=== PATIENT | male | born 1995 | race Caucasian/White ===

== ENCOUNTER 2017-12-23 11:38 | Inpatient (IN) | payer MEDICAID, OTHER ==
[~2017-12-23] VITALS: Ht 175.3 cm; Wt 71.2 kg
[2017-12-23] MEDS ORDERED: LORazepam 2 MG/ML VIAL ONE (11:53)
[2017-12-23] MEDS ORDERED: DiphenhydrAMINE HCL 50 MG/ML VIAL ONE (11:53)
[2017-12-23] MEDS ORDERED: HALOPERIDOL LACTATE 5 MG/ML VIAL ONE (11:53)
[2017-12-23] MEDS ORDERED: HALOPERIDOL LACTATE 5 MG/ML VIAL IM ONE (12:00)
[2017-12-23] MEDS ORDERED: LORazepam 2 MG/ML VIAL IM ONE (12:00)
[2017-12-23] MEDS ORDERED: DiphenhydrAMINE HCL 50 MG/ML VIAL IM ONE (12:00)
[2017-12-23 12:53] LABS: BASOPHILS % (AUTO) 0.6 % (0.0-2.0); EOSINOPHILS % (AUTO) 0.4 % (1.0-6.0); HEMATOCRIT 37.5 % (41-53); HEMOGLOBIN 12.9 g/dL (13.5-17.5); LYMPHOCYTES # (AUTO) 1.5 K/uL (1.0-4.8); LYMPHOCYTES % (AUTO) 13.2 % (22.0-44.0); MEAN CORPUSCULAR HEMOGLOBIN 27.8 pg (26.0-34.0); MEAN CORPUSCULAR HGB CONC 34.4 G/dL (31.0-37.0); MEAN CORPUSCULAR VOLUME 81 fL (80-100); MONOCYTES % (AUTO) 8.6 % (2.0-9.0); NEUTROPHILS # (AUTO) 8.9 K/uL (1.8-7.7); NEUTROPHILS % (AUTO) 77.2 % (40.0-70.0); PLATELET COUNT (AUTO) 223 K/uL (150-450); RED BLOOD CELL COUNT(AUTO) 4.64 MIL/uL (4.50-5.90); RED CELL DISTRIBUTION WIDTH 12.8 % (11.5-14.5)
[2017-12-23] MEDS ORDERED: ZOLPIDEM TARTRATE 10 MG TABLET PO PRN (13:00)
[2017-12-23] MEDS ORDERED: HALOPERIDOL 5 MG TABLET PO PRN (13:00)
[2017-12-23] MEDS ORDERED: LORazepam 2 MG TABLET PO PRN (13:00)
[2017-12-23 13:04] LABS: ANION GAP 13 mmol/L (8-16); CALCIUM, TOTAL 8.9 mg/dL (8.8-10.5); CARBON DIOXIDE 25 mmol/L (22-29); CHLORIDE 103 mmol/L (98-107); CREATININE 0.88 mg/dL (0.60-1.30); GLOMERULAR FILTR. RATE CALC > 60 mL/min (>60); GLUCOSE,RANDOM 87 mg/dL (70-110); POTASSIUM 3.2 mmol/L (3.5-5.1); SODIUM SERUM 141 mmol/L (136-145); UREA NITROGEN, BLOOD 19 mg/dL (7-18)
[2017-12-23 13:09] LABS: ALANINE AMINOTRANSFERASE 56 U/L (12-78); ALBUMIN 4.2 g/dL (3.4-5.0); ALKALINE PHOSPHATASE 53 U/L (46-116); ASPARTATE AMINOTRANSFERASE 167 U/L (15-37); BILIRUBIN,TOTAL 1.7 mg/dL (0.1-1.0)
[2017-12-23 22:08] LABS: AMPHET/METH SCREEN,URINE NEGATIVE (NEGATIVE); BARBITURATE SCREEN, URINE NEGATIVE (NEGATIVE); BENZODIAZEPINES SCREEN,URINE NEGATIVE (NEGATIVE); CANNABINOID SCREEN,URINE NEGATIVE (NEGATIVE); COCAINE SCREEN,URINE NEGATIVE (NEGATIVE); METHADONE SCREEN, URINE NEGATIVE (NEGATIVE); OPIATE SCREEN,URINE NEGATIVE (NEGATIVE)
[2017-12-23 22:10] LABS: PHENCYCLIDINE SCREEN,URINE NEGATIVE (NEGATIVE)
[2017-12-24 08:15] LABS: FREE T4 (FREE THYROXINE) 1.28 ng/dL (0.76-1.46); THYROID STIMULATING HORMONE 2.07 uIU/mL (0.36-3.74)
[2017-12-24 09:05] LABS: APPEARANCE,URINE TURBID (CLEAR); BILIRUBIN,URINE NEGATIVE (NEGATIVE); GLUCOSE, URINE (UA) NEGATIVE (NEGATIVE); KETONES,URINE TRACE mg/dL (NEGATIVE); LEUKOCYTE ESTERASE ,URINE NEGATIVE (NEGATIVE); NITRATE,URINE NEGATIVE (NEGATIVE); OCCULT BLOOD,URINE NEGATIVE (NEGATIVE); PH,URINE 6.5 (5.0-8.0); PROTEIN,URINE TRACE (NEGATIVE); UROBILINOGEN,URINE 0.2 mg/dL (<=1.0)
[2017-12-24 09:18] LABS: AMORPHOUS SEDIMENT,UR Moderate /LPF (None Seen); BACTERIA,URINE Few /HPF (None Seen); RBC,URINE None Seen /HPF (0-2); SQUAMOUS EPITHELIAL CELL,UR Rare /LPF (None Seen); WBC,URINE None Seen /HPF (0-5)
[2017-12-24 15:53] VITALS: BP 140/70
[2017-12-24 16:04] VITALS: BP 140/70
[2017-12-25 09:35] VITALS: BP 137/78
[2017-12-25] MEDS: OLANZapine 5 MG RAPDIS TABLET PO SCH (16:51)
[2017-12-25 17:07] VITALS: BP 147/91
[2017-12-25] MEDS ORDERED: POTASSIUM CHLORIDE 20 MEQ ER TABLET PO ONE (17:45)
[2017-12-25] MEDS: OLANZapine 10 MG RAPDIS TABLET PO SCH (20:24)
[2017-12-26] MEDS ORDERED: INFLUENZA VIRUS VACCINE QVS 2017-18 (3YR+)/PF 60 MCG/0.5 ML SYRINGE IM ONE (04:30)
[2017-12-26 06:50] LABS: BASOPHILS % (AUTO) 1.1 % (0.0-2.0); EOSINOPHILS % (AUTO) 2.1 % (1.0-6.0); HEMATOCRIT 37.8 % (41-53); LYMPHOCYTES % (AUTO) 37.8 % (22.0-44.0); MEAN CORPUSCULAR HEMOGLOBIN 27.9 pg (26.0-34.0); MEAN CORPUSCULAR HGB CONC 34.3 G/dL (31.0-37.0); MEAN CORPUSCULAR VOLUME 81 fL (80-100); MONOCYTES # (AUTO) 0.4 K/uL (0.1-1.0); MONOCYTES % (AUTO) 8.1 % (2.0-9.0); NEUTROPHILS # (AUTO) 2.7 K/uL (1.8-7.7); NEUTROPHILS % (AUTO) 50.9 % (40.0-70.0); PLATELET COUNT (AUTO) 234 K/uL (150-450); RED BLOOD CELL COUNT(AUTO) 4.65 MIL/uL (4.50-5.90); RED CELL DISTRIBUTION WIDTH 12.9 % (11.5-14.5)
[2017-12-26 07:36] LABS: ALANINE AMINOTRANSFERASE 49 U/L (12-78); ALBUMIN 4.1 g/dL (3.4-5.0); ALKALINE PHOSPHATASE 56 U/L (46-116); ANION GAP 9 mmol/L (8-16); ASPARTATE AMINOTRANSFERASE 63 U/L (15-37); BILIRUBIN,TOTAL 1.3 mg/dL (0.1-1.0); CALCIUM, TOTAL 9.3 mg/dL (8.8-10.5); CARBON DIOXIDE 28 mmol/L (22-29); CHLORIDE 102 mmol/L (98-107); CHOL/HDL RATIO 2.1 (4.2-7.3); CHOLESTEROL 90 mg/dL (131-200); CREATININE 0.74 mg/dL (0.60-1.30); FREE T4 (FREE THYROXINE) 1.36 ng/dL (0.76-1.46); GLOMERULAR FILTR. RATE CALC > 60 mL/min (>60); GLUCOSE,RANDOM 96 mg/dL (70-110); HDL CHOLESTEROL 43 mg/dL (40-60); LDL CHOL (CALC.) 41 mg/dL (0-130); POTASSIUM 3.5 mmol/L (3.5-5.1); SODIUM SERUM 139 mmol/L (136-145); THYROID STIMULATING HORMONE 2.61 uIU/mL (0.36-3.74); TOTAL PROTEIN, SERUM 7.3 g/dL (6.4-8.2); TRIGLYCERIDES 30 mg/dL (15-150); UREA NITROGEN, BLOOD 5 mg/dL (7-18)
[2017-12-26 08:24] VITALS: BP 129/85
[2017-12-26] MEDS: OLANZapine 5 MG RAPDIS TABLET PO SCH ×2 (09:00→16:38)
[2017-12-26 16:30] VITALS: BP 134/81
[2017-12-26] MEDS ORDERED: HALOPERIDOL LACTATE 5 MG/ML VIAL IM ONE (19:30)
[2017-12-26] MEDS ORDERED: LORazepam 2 MG/ML VIAL IM ONE (19:30)
[2017-12-26] MEDS ORDERED: DiphenhydrAMINE HCL 50 MG/ML VIAL IM ONE (19:30)
[2017-12-26] MEDS: OLANZapine 10 MG RAPDIS TABLET PO SCH (20:18)
[2017-12-27] MEDS: OLANZapine 5 MG RAPDIS TABLET PO SCH ×2 (09:00→15:46)
[2017-12-27 09:33] VITALS: BP 125/83
[2017-12-27 16:00] VITALS: BP 144/94
[2017-12-27] MEDS: OLANZapine 10 MG RAPDIS TABLET PO SCH (20:16)
[2017-12-28 08:12] VITALS: BP 137/92
[2017-12-28] MEDS: OLANZapine 5 MG RAPDIS TABLET PO SCH (08:18)
[2017-12-28] MEDS ORDERED: OLAN10TA6 PO (14:38)
[2017-12-28] MEDS ORDERED: OLAN5TAB40 PO (14:38)
[2017-12-28 17:28] VITALS: BP 150/85
== END 2017-12-28 18:00 | disposition left against medical advice (07) | DRG 750 ==
LOC: EMS 11:41 → 3EC 12-24 15:00
PROVIDERS: ADMIT Psychiatry & Neurology Child & Adolescent Psychiatry; ATTEND Psychiatry & Neurology Child & Adolescent Psychiatry
DX: F20.0 Paranoid schizophrenia (principal); E87.6 Hypokalemia; Z53.21 Procedure and treatment not carried out due to patient leaving prior to being seen by health care provider; D64.9 Anemia, unspecified; D72.829 Elevated white blood cell count, unspecified; F41.9 Anxiety disorder, unspecified; R79.89 Other specified abnormal findings of blood chemistry; Z28.21 Immunization not carried out because of patient refusal
CPT/HCPCS: 80074; 82306; 84439; 84443; 96372; 99291; G0480; J1200; J1630; J2060

== ENCOUNTER 2019-03-05 12:20 | Inpatient (IN) | payer MEDICAID, OTHER ==
[~2019-03-05] VITALS: Ht 177.8 cm; Wt 77.6 kg
[~2019-03-05 12:20] MED LIST: OLAN10TA6 PO; OLAN5TAB40 PO
[2019-03-05 16:59] LABS: AMPHET/METH SCREEN,URINE NEGATIVE (NEGATIVE); BARBITURATE SCREEN, URINE NEGATIVE (NEGATIVE); BENZODIAZEPINES SCREEN,URINE NEGATIVE (NEGATIVE); CANNABINOID SCREEN,URINE NEGATIVE (NEGATIVE); COCAINE SCREEN,URINE NEGATIVE (NEGATIVE); METHADONE SCREEN, URINE NEGATIVE (NEGATIVE); OPIATE SCREEN,URINE NEGATIVE (NEGATIVE)
[2019-03-05 17:00] LABS: PHENCYCLIDINE SCREEN,URINE NEGATIVE (NEGATIVE)
[2019-03-05] MEDS ORDERED: LORazepam 2 MG/ML VIAL IM ONE (20:30)
[2019-03-05] MEDS ORDERED: DiphenhydrAMINE HCL 50 MG/ML VIAL IM ONE (20:30)
[2019-03-05] MEDS ORDERED: HALOPERIDOL LACTATE 5 MG/ML VIAL IM ONE (20:30)
[2019-03-05] MEDS ORDERED: ZOLPIDEM TARTRATE 10 MG TABLET PO PRN (20:45)
[2019-03-05] MEDS ORDERED: HALOPERIDOL 5 MG TABLET PO PRN (20:45)
[2019-03-05] MEDS: LORazepam 2 MG TABLET PO PRN (20:50)
[2019-03-06 10:22] VITALS: BP 142/83
[2019-03-06] MEDS ORDERED: NICOTINE 14 MG/24 HOUR PATCH TD PRN (10:45)
[2019-03-06] MEDS ORDERED: MAGNESIUM HYDROXIDE SUSPENSION 30 ML UDCUP PO PRN (10:45)
[2019-03-06] MEDS ORDERED: LOPERAMIDE HCL 2 MG CAPSULE PO PRN (10:45)
[2019-03-06] MEDS ORDERED: GuaiFENesin/D-METHORPHAN [SUGAR-FREE] 200-20MG/10 ML SYRUP UDCUP PO PRN (10:45)
[2019-03-06] MEDS ORDERED: MAG HYDROX/AL HYDROX/SIMETH ES 30 ML SUSPENSION UDCUP PO PRN (10:45)
[2019-03-06] MEDS ORDERED: PETROLATUM,WHITE 28 GM JELLY TP PRN (10:45)
[2019-03-06] MEDS ORDERED: ONDANSETRON HCL 4 MG TABLET PO PRN (10:45)
[2019-03-06] MEDS ORDERED: ALBUTEROL SULFATE HFA 90 MCG/PUFF 8 GM INHALER IH PRN (10:45)
[2019-03-06 16:00] VITALS: BP 102/75
[2019-03-06] MEDS: OLANZapine 5 MG TABLET PO SCH (17:00)
[2019-03-07 03:51] VITALS: BP 138/83
[2019-03-07 08:21] LABS: BASOPHILS % (AUTO) 0.5 % (0.0-2.0); EOSINOPHILS % (AUTO) 4.4 % (1.0-6.0); HEMATOCRIT 44.6 % (41-53); HEMOGLOBIN 14.8 g/dL (13.5-17.5); LYMPHOCYTES # (AUTO) 1.8 K/uL (1.0-4.8); MEAN CORPUSCULAR HEMOGLOBIN 27.9 pg (26.0-34.0); MEAN CORPUSCULAR HGB CONC 33.1 G/dL (31.0-37.0); MEAN CORPUSCULAR VOLUME 84 fL (80-100); MONOCYTES # (AUTO) 0.4 K/uL (0.1-1.0); MONOCYTES % (AUTO) 7.2 % (2.0-9.0); NEUTROPHILS # (AUTO) 3.1 K/uL (1.8-7.7); NEUTROPHILS % (AUTO) 55.9 % (40.0-70.0); PLATELET COUNT (AUTO) 274 K/uL (150-450); RED CELL DISTRIBUTION WIDTH 13.5 % (11.5-14.5)
[2019-03-07] MEDS: OLANZapine 5 MG TABLET PO SCH ×2 (08:27→08:39)
[2019-03-07 08:29] VITALS: BP 129/62
[2019-03-07 08:38] LABS: HEMOGLOBIN A1C 5.7 % (4.5-6.2)
[2019-03-07 08:48] LABS: ALANINE AMINOTRANSFERASE 44 U/L (12-78); ALKALINE PHOSPHATASE 95 U/L (46-116); ANION GAP 7 mmol/L (8-16); ASPARTATE AMINOTRANSFERASE 27 U/L (15-37); BILIRUBIN,TOTAL 0.6 mg/dL (0.1-1.0); CALCIUM, TOTAL 8.9 mg/dL (8.8-10.5); CARBON DIOXIDE 27 mmol/L (22-29); CHLORIDE 104 mmol/L (98-107); CHOL/HDL RATIO 2.6 (4.2-7.3); CHOLESTEROL 143 mg/dL (131-200); CREATININE 0.77 mg/dL (0.60-1.30); GLOMERULAR FILTR. RATE CALC > 60 mL/min (>60); GLUCOSE,RANDOM 91 mg/dL (70-110); HDL CHOLESTEROL 56 mg/dL (40-60); LDL CHOL (CALC.) 81 mg/dL (0-130); SODIUM SERUM 138 mmol/L (136-145); THYROID STIMULATING HORMONE 1.91 uIU/mL (0.36-3.74); TRIGLYCERIDES 31 mg/dL (15-150); UREA NITROGEN, BLOOD 20 mg/dL (7-18)
[2019-03-07] MEDS: OLANZapine 5 MG RAPDIS TABLET PO SCH (16:31)
[2019-03-07] MEDS: LORazepam 2 MG TABLET PO PRN (16:31)
[2019-03-07 16:37] VITALS: BP 140/84
[2019-03-08 05:43] VITALS: BP 132/78
[2019-03-08] MEDS: OLANZapine 5 MG RAPDIS TABLET PO SCH ×2 (09:04→16:09)
[2019-03-08 09:10] VITALS: BP 140/88
[2019-03-08 16:00] VITALS: BP 142/89
[2019-03-08] MEDS: LORazepam 2 MG TABLET PO PRN (16:09)
[2019-03-09 00:22] VITALS: BP 133/82
[2019-03-09 08:52] VITALS: BP 132/79
[2019-03-09] MEDS: LORazepam 2 MG TABLET PO PRN (09:15)
[2019-03-09] MEDS: OLANZapine 5 MG RAPDIS TABLET PO SCH (09:15)
[2019-03-09 16:00] VITALS: BP 130/72
[2019-03-09] MEDS: OLANZapine 10 MG RAPDIS TABLET PO SCH (16:37)
[2019-03-10 00:58] VITALS: BP 131/92
[2019-03-10] MEDS: LORazepam 2 MG TABLET PO PRN ×2 (02:03→16:46)
[2019-03-10 08:13] VITALS: BP 138/80
[2019-03-10] MEDS: OLANZapine 10 MG RAPDIS TABLET PO SCH ×2 (08:57→16:46)
[2019-03-10 16:00] VITALS: BP 133/83
[2019-03-11 05:42] VITALS: BP 125/72
[2019-03-11 08:06] VITALS: BP 133/70
[2019-03-11] MEDS: OLANZapine 10 MG RAPDIS TABLET PO SCH ×2 (08:40→16:11)
[2019-03-11] MEDS: LORazepam 2 MG TABLET PO PRN ×2 (08:40→16:12)
[2019-03-11 16:00] VITALS: BP 137/89
[2019-03-12 06:49] VITALS: BP 130/78
[2019-03-12 08:18] VITALS: BP 119/89
[2019-03-12] MEDS: OLANZapine 10 MG RAPDIS TABLET PO SCH ×2 (08:35→16:48)
[2019-03-12 16:01] VITALS: BP 134/73
[2019-03-12] MEDS: LORazepam 2 MG TABLET PO PRN (16:48)
[2019-03-12] MEDS ORDERED: OLAN10TA6 PO ×2 (16:50→16:58)
== END 2019-03-12 17:35 | disposition home or self-care (01) | DRG 750 ==
LOC: EMS 12:20 → B3A 03-06 08:29
PROVIDERS: ADMIT Psychiatry & Neurology Psychiatry; ATTEND Psychiatry & Neurology Psychiatry
DX: F20.0 Paranoid schizophrenia (principal); R45.851 Suicidal ideations; F31.9 Bipolar disorder, unspecified; F19.10 Other psychoactive substance abuse, uncomplicated; R10.13 Epigastric pain; K59.00 Constipation, unspecified; Z79.899 Other long term (current) drug therapy; Z71.51 Drug abuse counseling and surveillance of drug abuser
CPT/HCPCS: 83036; 84443; J1200; J1630; J2060

== ENCOUNTER 2021-04-02 07:40 | Inpatient (IN) | payer MEDICAID, OTHER ==
[~2021-04-02] VITALS: Ht 177.8 cm; Wt 150.1 kg
[~2021-04-02 07:40] MED LIST changes: +OLAN10TA26 PO; -OLAN10TA6 PO; -OLAN5TAB40 PO
[2021-04-02] MEDS ORDERED: HALOPERIDOL LACTATE 5 MG/ML VIAL ONE (07:44)
[2021-04-02] MEDS ORDERED: LORazepam 2 MG/ML VIAL ONE (07:44)
[2021-04-02] MEDS ORDERED: DiphenhydrAMINE HCL 50 MG/ML VIAL ONE (07:44)
[2021-04-02] MEDS ORDERED: SERT-158 PO (07:55)
[2021-04-02] MEDS ORDERED: DiphenhydrAMINE HCL 50 MG/ML VIAL IM ONE ×2 (08:00→19:45)
[2021-04-02] MEDS ORDERED: HALOPERIDOL LACTATE 5 MG/ML VIAL IM ONE ×2 (08:00→19:45)
[2021-04-02] MEDS ORDERED: LORazepam 2 MG/ML VIAL IM ONE ×2 (08:00→19:45)
[2021-04-02] MEDS ORDERED: ZOLPIDEM TARTRATE 10 MG TABLET PO PRN (10:15)
[2021-04-02 11:07] LABS: COVID AG,FIA SOURCE NASOPHARYNGEAL
[2021-04-02 11:08] LABS: BASOPHILS % (AUTO) 0.6 % (0.0-2.0); EOSINOPHILS % (AUTO) 0.8 % (1.0-6.0); HEMATOCRIT 38.7 % (41-53); HEMOGLOBIN 12.3 g/dL (13.5-17.5); LYMPHOCYTES # (AUTO) 2.1 K/uL (1.0-4.8); LYMPHOCYTES % (AUTO) 18.1 % (22.0-44.0); MEAN CORPUSCULAR HGB CONC 31.8 G/dL (31.0-37.0); MEAN CORPUSCULAR VOLUME 82 fL (80-100); MONOCYTES # (AUTO) 0.9 K/uL (0.1-1.0); MONOCYTES % (AUTO) 7.5 % (2.0-9.0); NEUTROPHILS # (AUTO) 8.5 K/uL (1.8-7.7); PLATELET COUNT (AUTO) 288 K/uL (150-450); RED BLOOD CELL COUNT(AUTO) 4.75 MIL/uL (4.50-5.90); RED CELL DISTRIBUTION WIDTH 14.9 % (11.5-14.5)
[2021-04-02 11:18] LABS: ANION GAP 8 mmol/L (8-16); CALCIUM, TOTAL 9.3 mg/dL (8.8-10.5); CARBON DIOXIDE 27 mmol/L (22-29); CHLORIDE 104 mmol/L (98-107); CREATININE 1.26 mg/dL (0.60-1.30); GLOMERULAR FILTR. RATE CALC > 60 mL/min (>60); GLUCOSE,RANDOM 105 mg/dL (70-110); POTASSIUM 3.5 mmol/L (3.5-5.1); SODIUM SERUM 139 mmol/L (136-145); UREA NITROGEN, BLOOD 20 mg/dL (7-18)
[2021-04-02 11:24] LABS: ALANINE AMINOTRANSFERASE 45 U/L (12-78); ALBUMIN 4.2 g/dL (3.4-5.0); ALKALINE PHOSPHATASE 87 U/L (46-116); ASPARTATE AMINOTRANSFERASE 32 U/L (15-37); BILIRUBIN,TOTAL 0.6 mg/dL (0.1-1.0); TOTAL PROTEIN, SERUM 7.9 g/dL (6.4-8.2)
[2021-04-03 04:14] LABS: CHOL/HDL RATIO 4.1 (4.2-7.3)
[2021-04-03] MEDS ORDERED: LORazepam 2 MG/ML VIAL IM ONE (09:45)
[2021-04-03] MEDS ORDERED: HALOPERIDOL LACTATE 5 MG/ML VIAL IM ONE (09:45)
[2021-04-03] MEDS ORDERED: DiphenhydrAMINE HCL 50 MG/ML VIAL IM ONE (09:45)
[2021-04-04 02:36] VITALS: BP 142/87
[2021-04-04] MEDS ORDERED: MAG HYDROX/AL HYDROX/SIMETH ES 30 ML SUSPENSION UDCUP PO PRN (07:15)
[2021-04-04] MEDS ORDERED: ACETAMINOPHEN 325 MG TABLET PO PRN (07:15)
[2021-04-04] MEDS ORDERED: PETROLATUM,WHITE 28 GM JELLY TP PRN (07:15)
[2021-04-04] MEDS ORDERED: GuaiFENesin/D-METHORPHAN [SUGAR-FREE] 200-20MG/10 ML SYRUP UDCUP PO PRN (07:15)
[2021-04-04] MEDS ORDERED: MAGNESIUM HYDROXIDE SUSPENSION 30 ML UDCUP PO PRN (07:15)
[2021-04-04] MEDS ORDERED: LOPERAMIDE HCL 2 MG CAPSULE PO PRN (07:15)
[2021-04-04] MEDS ORDERED: ALBUTEROL SULFATE HFA 90 MCG/PUFF 8 GM INHALER IH PRN (07:15)
[2021-04-04] MEDS ORDERED: ONDANSETRON HCL 4 MG TABLET PO PRN (07:15)
[2021-04-04] MEDS ORDERED: DOCUSATE SODIUM 100 MG CAPSULE PO PRN (07:15)
[2021-04-04] MEDS ORDERED: NICOTINE 14 MG/24 HOUR PATCH TD PRN (07:15)
[2021-04-04] MEDS ORDERED: IBUPROFEN 400 MG TABLET PO PRN (07:15)
[2021-04-04] MEDS ORDERED: CloNIDine HCL 0.1 MG TABLET PO PRN (07:15)
[2021-04-04 08:32] VITALS: BP 136/60
[2021-04-04] MEDS: LORazepam 2 MG TABLET PO PRN ×3 (11:02→22:32)
[2021-04-04 16:04] VITALS: BP 142/82
[2021-04-04] MEDS: OLANZapine 10 MG RAPDIS TABLET PO SCH (16:47)
[2021-04-04] MEDS: HALOPERIDOL 5 MG TABLET PO PRN (22:32)
[2021-04-05 00:46] VITALS: BP 130/64
[2021-04-05] MEDS: HALOPERIDOL 5 MG TABLET PO PRN (08:00)
[2021-04-05] MEDS: LORazepam 2 MG TABLET PO PRN (08:00)
[2021-04-05 08:29] VITALS: BP 110/70
[2021-04-05] MEDS: OLANZapine 10 MG RAPDIS TABLET PO SCH ×2 (08:58→17:00)
[2021-04-05] MEDS: SERTRALINE HCL 50 MG TABLET PO SCH (08:58)
[2021-04-05 16:13] VITALS: BP 159/95
[2021-04-05] MEDS ORDERED: DiphenhydrAMINE HCL 50 MG/ML VIAL ONE (16:26)
[2021-04-05] MEDS ORDERED: LORazepam 2 MG/ML VIAL ONE (16:26)
[2021-04-05] MEDS ORDERED: HALOPERIDOL LACTATE 5 MG/ML VIAL ONE ×2 (16:27→16:32)
[2021-04-05] MEDS ORDERED: DiphenhydrAMINE HCL 50 MG/ML VIAL IM ONE (16:30)
[2021-04-05] MEDS ORDERED: LORazepam 2 MG/ML VIAL IM ONE (16:30)
[2021-04-05] MEDS ORDERED: HALOPERIDOL LACTATE 5 MG/ML VIAL IM ONE (16:30)
[2021-04-06 05:34] VITALS: BP 139/81
[2021-04-06] MEDS: LORazepam 2 MG TABLET PO PRN (08:00)
[2021-04-06 08:21] VITALS: BP 157/92
[2021-04-06] MEDS: OLANZapine 10 MG RAPDIS TABLET PO SCH ×2 (08:51→16:57)
[2021-04-06] MEDS: SERTRALINE HCL 50 MG TABLET PO SCH (08:51)
[2021-04-06 16:07] VITALS: BP 158/91
[2021-04-06] MEDS ORDERED: LORazepam 2 MG/ML VIAL ONE (16:27)
[2021-04-06] MEDS ORDERED: DiphenhydrAMINE HCL 50 MG/ML VIAL ONE (16:27)
[2021-04-06] MEDS ORDERED: HALOPERIDOL LACTATE 5 MG/ML VIAL ONE (16:27)
[2021-04-06] MEDS ORDERED: HALOPERIDOL LACTATE 5 MG/ML VIAL IM ONE (16:30)
[2021-04-06] MEDS ORDERED: DiphenhydrAMINE HCL 50 MG/ML VIAL IM ONE (16:30)
[2021-04-06] MEDS ORDERED: LORazepam 2 MG/ML VIAL IM ONE (16:30)
[2021-04-07 05:22] VITALS: BP 141/68
[2021-04-07] MEDS: HALOPERIDOL LACTATE 5 MG/ML VIAL IM ONE ×2 (08:30→10:19)
[2021-04-07] MEDS: DiphenhydrAMINE HCL 50 MG/ML VIAL IM ONE ×2 (08:30→10:15)
[2021-04-07] MEDS: LORazepam 2 MG/ML VIAL IM ONE ×2 (08:30→10:20)
[2021-04-07] MEDS ORDERED: LORazepam 2 MG/ML VIAL ONE (08:34)
[2021-04-07] MEDS ORDERED: DiphenhydrAMINE HCL 50 MG/ML VIAL ONE (08:34)
[2021-04-07] MEDS ORDERED: HALOPERIDOL LACTATE 5 MG/ML VIAL ONE (08:34)
[2021-04-07] MEDS: SERTRALINE HCL 50 MG TABLET PO SCH (09:17)
[2021-04-07] MEDS: OLANZapine 10 MG RAPDIS TABLET PO SCH ×2 (09:17→16:39)
[2021-04-07 09:20] VITALS: BP 145/93
[2021-04-07] MEDS: LORazepam 2 MG TABLET PO PRN ×2 (16:39→21:17)
[2021-04-07] MEDS: HALOPERIDOL 5 MG TABLET PO PRN (16:39)
[2021-04-08] MEDS: HALOPERIDOL 5 MG TABLET PO PRN ×2 (08:00→19:36)
[2021-04-08] MEDS: LORazepam 2 MG TABLET PO PRN ×2 (08:00→19:36)
[2021-04-08 08:08] VITALS: BP 149/90
[2021-04-08 08:44] LABS: BASOPHILS % (AUTO) 0.4 % (0.0-2.0); EOSINOPHILS % (AUTO) 3.9 % (1.0-6.0); HEMATOCRIT 44.6 % (41-53); HEMOGLOBIN 14.5 g/dL (13.5-17.5); LYMPHOCYTES # (AUTO) 2.2 K/uL (1.0-4.8); MEAN CORPUSCULAR HEMOGLOBIN 26.5 pg (26.0-34.0); MEAN CORPUSCULAR HGB CONC 32.5 G/dL (31.0-37.0); MEAN CORPUSCULAR VOLUME 82 fL (80-100); MONOCYTES # (AUTO) 0.4 K/uL (0.1-1.0); MONOCYTES % (AUTO) 4.8 % (2.0-9.0); NEUTROPHILS # (AUTO) 4.8 K/uL (1.8-7.7); NEUTROPHILS % (AUTO) 61.9 % (40.0-70.0); PLATELET COUNT (AUTO) 338 K/uL (150-450); RED BLOOD CELL COUNT(AUTO) 5.46 MIL/uL (4.50-5.90); RED CELL DISTRIBUTION WIDTH 14.6 % (11.5-14.5)
[2021-04-08] MEDS: SERTRALINE HCL 50 MG TABLET PO SCH (09:08)
[2021-04-08] MEDS: OLANZapine 10 MG RAPDIS TABLET PO SCH ×2 (09:08→16:16)
[2021-04-08] MEDS ORDERED: DiphenhydrAMINE HCL 50 MG/ML VIAL IM ONE (09:15)
[2021-04-08] MEDS ORDERED: HALOPERIDOL LACTATE 5 MG/ML VIAL IM ONE (09:15)
[2021-04-08] MEDS ORDERED: LORazepam 2 MG/ML VIAL IM ONE (09:15)
[2021-04-08 16:11] VITALS: BP 160/85
[2021-04-08 20:06] VITALS: BP 131/72
[2021-04-09] MEDS: LORazepam 2 MG TABLET PO PRN ×2 (08:00→16:22)
[2021-04-09] MEDS: HALOPERIDOL 5 MG TABLET PO PRN ×2 (08:00→16:22)
[2021-04-09 09:22] VITALS: BP 118/88
[2021-04-09] MEDS: SERTRALINE HCL 50 MG TABLET PO SCH (09:22)
[2021-04-09] MEDS: OLANZapine 10 MG RAPDIS TABLET PO SCH ×2 (09:22→16:22)
[2021-04-09 16:16] VITALS: BP 115/80
[2021-04-10 04:37] VITALS: BP 121/84
[2021-04-10] MEDS: LORazepam 2 MG TABLET PO PRN ×3 (06:41→16:42)
[2021-04-10] MEDS: HALOPERIDOL 5 MG TABLET PO PRN ×2 (06:41→17:00)
[2021-04-10 09:40] VITALS: BP 126/82
[2021-04-10] MEDS: OLANZapine 10 MG RAPDIS TABLET PO SCH ×2 (09:40→16:42)
[2021-04-10] MEDS: SERTRALINE HCL 50 MG TABLET PO SCH (09:40)
[2021-04-10 16:05] VITALS: BP 123/80
[2021-04-11 06:01] VITALS: BP 153/88
[2021-04-11] MEDS: HALOPERIDOL 5 MG TABLET PO PRN ×2 (08:00→16:40)
[2021-04-11] MEDS: LORazepam 2 MG TABLET PO PRN ×2 (08:00→16:09)
[2021-04-11] MEDS ORDERED: LORazepam 1 MG TABLET ONE (08:04)
[2021-04-11 08:11] VITALS: BP 139/64
[2021-04-11] MEDS: SERTRALINE HCL 50 MG TABLET PO SCH (08:55)
[2021-04-11] MEDS: OLANZapine 10 MG RAPDIS TABLET PO SCH ×2 (08:55→16:09)
[2021-04-11 16:05] VITALS: BP 140/80
[2021-04-12 05:10] VITALS: BP 145/66
[2021-04-12 06:48] VITALS: BP 124/67
[2021-04-12 08:22] VITALS: BP 130/75
[2021-04-12] MEDS: SERTRALINE HCL 50 MG TABLET PO SCH (08:23)
[2021-04-12] MEDS: OLANZapine 10 MG RAPDIS TABLET PO SCH ×2 (08:23→16:04)
[2021-04-12] MEDS: LORazepam 2 MG TABLET PO PRN (16:04)
[2021-04-12] MEDS: HALOPERIDOL 5 MG TABLET PO PRN (16:04)
[2021-04-12 16:07] VITALS: BP 147/88
[2021-04-12 17:04] VITALS: BP 142/85
[2021-04-13 02:53] VITALS: BP 137/83
[2021-04-13] MEDS: LORazepam 2 MG TABLET PO PRN ×3 (03:33→16:31)
[2021-04-13] MEDS: HALOPERIDOL 5 MG TABLET PO PRN ×3 (03:33→19:08)
[2021-04-13 08:20] VITALS: BP 148/81
[2021-04-13] MEDS: SERTRALINE HCL 50 MG TABLET PO SCH (08:46)
[2021-04-13] MEDS: OLANZapine 10 MG RAPDIS TABLET PO SCH ×2 (08:47→16:31)
[2021-04-13 16:02] VITALS: BP 131/87
[2021-04-14 05:37] VITALS: BP 128/76
[2021-04-14] MEDS: LORazepam 2 MG TABLET PO PRN (08:15)
[2021-04-14 08:28] VITALS: BP 105/75
[2021-04-14] MEDS: OLANZapine 10 MG RAPDIS TABLET PO SCH (09:03)
[2021-04-14] MEDS: SERTRALINE HCL 50 MG TABLET PO SCH (09:03)
== END 2021-04-14 12:25 | disposition home or self-care (01) | DRG 750 ==
LOC: EMS 07:40 → B3A 10:05 → UNDOADMIN 10:05 → B3A 04-04 03:13
PROVIDERS: ADMIT Psychiatry & Neurology Child & Adolescent Psychiatry; ATTEND Psychiatry & Neurology Child & Adolescent Psychiatry
DX: F20.0 Paranoid schizophrenia (principal); E86.0 Dehydration; D64.9 Anemia, unspecified; F41.9 Anxiety disorder, unspecified; Z20.822 Contact with and (suspected) exposure to COVID-19; D72.829 Elevated white blood cell count, unspecified; Z59.0 Homelessness; Z91.14 Patient's other noncompliance with medication regimen; Z91.19 Patient's noncompliance with other medical treatment and regimen
CPT/HCPCS: 80053; 80061; 85025; 99285; G0480; J1200; J1630; J2060